=== PATIENT | female | born 1960 | race Caucasian/White ===

== ENCOUNTER → 2016-11-17 | Day surgery (SDC) | payer OTHER ==
--- NOTE | 2016-11-08 14:22 | TH ---
cc: MERVIN FRIEND [facility] [id number] DATE: DATE OF : 1960 PRINCIPAL DIAGNOSIS Newly diagnosed right breast cancer. HISTORY OF PRESENT ILLNESS The patient is a 56-year-old female noted to have a newly diagnosed right breast cancer. She has had a palpable mass in her right breast since July and bilateral diagnostic mammography on August 30 at [facility] confirmed a BI-RADS 5 spiculated mass in the upper inner right breast corresponding to the palpable abnormality. This was confirmed with a right breast ultrasound and bilateral microcalcifications were also noted. Bilateral stereotactic biopsy as well as ultrasound-guided right breast mass biopsy was performed on September 08. 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 Ki-67 was intermediate at 16%. The right breast microcalcifications were benign but the left microcalcifications demonstrated atypical ductal hyperplasia. She has opted for breast conservation as well as re-excision of the area of atypical hyperplasia in the left breast. PAST MEDICAL HISTORY 1. Chester's thyroiditis. 2. Labile blood pressure. PAST SURGICAL HISTORY 1. Tonsillectomy in 1964. 2. [place] tooth extraction in 1979. MEDICATIONS Alprazolam 0.5 mg p.r.n. ALLERGIES She has no drug allergies. FAMILY HISTORY Noncontributory. SOCIAL HISTORY She denied tobacco use. REPRODUCTIVE HISTORY G3, P0, A3. Menarche age 12. She continues to menstruate and does not take hormone replacement. REVIEW OF SYSTEMS A 12-point review of systems was otherwise noncontributory. PHYSICAL EXAMINATION VITAL SIGNS: She was 5 feet 8 inches and weighed 235 pounds with a BMI of 35.7. Blood pressure 172/89, temperature 98, heart rate 95, respirations 18. HEENT: Exam was unremarkable. NECK: Supple with no adenopathy or thyromegaly. CHEST: Clear throughout. CARDIAC: Normal S1 and S2 with no murmurs, rubs or gallops. BREASTS: Exam revealed that the left breast was larger than the right with normal nipples and no discharge. There was a palpable 2 cm superior medial quadrant mass in the right breast at 1 o'clock parasternal. There were healed biopsy scars in both breasts. There was no palpable mass in the left breast. ABDOMEN: The abdomen was soft and nontender throughout with no hepatosplenomegaly or masses. The remainder of her exam was unremarkable. IMPRESSION Ms. Esparza has clinical stage II right breast cancer, and atypical ductal hyperplasia of the left breast. MRI confirmed these findings. PLAN/RECOMMENDATIONS I have recommended a right breast lumpectomy as well as a left breast needle-localized lumpectomy and she will also require sentinel lymph node biopsy with a full scan and possible internal mammary lymph node biopsy. She understands the risks and benefits of the procedure and has agreed to proceed. MD TETE Casper/ANATOLIY /1:48 PM /2:05 PM
[~2016-11-17] MED LIST: BUPIVACAINE HCL PF 0.5% 30 ML VIAL ONE; ISOSULFAN BLUE 50 MG/5 ML VIAL SQ ONE; KETOROLAC TROMETHAMINE 30 MG/ML (IVP) VIAL ONE; LACTATED RINGER'S 1,000 ML BAG IV ONE; LACTATED RINGER'S 1000 ML INJ 1,000 ML ONE; MEPERIDINE HCL 25 MG/ML VIAL ONE; MIDAZOLAM HCL 2 MG/2 ML VIAL ONE; MORPHINE SULFATE 4 MG/ML INJ ONE; ONDANSETRON HCL 4 MG/2 ML VIAL IV PUSH ONE; PROPOFOL 200 MG/20 ML AMP IV ONE; SODIUM CHLORIDE 0.9% INJ 10 ML ONE; ceFAZolin 2 GM PREMIX 50 ML ONE; oxyCODONE/ACETAMINOPHEN 5 MG/325 MG TAB ONE
--- NOTE | 2016-11-17 13:56 | TN ---
cc: SABRINA FIREND DATE OF SURGERY: 11/17/2016 PRINCIPAL DIAGNOSIS Atypical ductal hyperplasia of the left breast and clinical stage II invasive ductal carcinoma of the right breast. PROCEDURE PERFORMED Left breast needle-localized lumpectomy and right breast lumpectomy and axillary sentinel lymph node biopsy. SURGEON Sabrina Friend MD. ANESTHESIA General via LMA device. INDICATION The patient is a 56-year-old female who had a 2 cm palpable upper medial right breast mass as well as bilateral microcalcifications by imaging. Ultrasound-guided biopsy of the mass was positive for carcinoma but the stereotactic right breast biopsy was benign. The left breast stereotactic biopsy demonstrated atypical ductal hyperplasia. She now presents for definitive surgery. FINDINGS AT SURGERY Left breast specimen mammogram did demonstrate an intact wire and the clip was within the excised tissue. Four sentinel lymph nodes were identified. #1 was 1+ blue and had a count of 4232. [place] nodes two and three, were not blue and had a count of 836 and 139 respectively. [place] lymph node #4 was not blue and had a count of six but was grossly enlarged. Background count was two. PROCEDURE PERFORMED After informed consent was obtained and site verification was performed, the patient was brought to the radiology suite where she underwent bella tumor radionuclide injection as well as needle localization of her left breast calcifications. She was then brought to the major operating room where she was given a single dose of IV Ancef and sequential compression hose were placed. She underwent general anesthesia via LMA device and both the left and right breast as well as the right arm were then prepped and draped in sterile fashion. 2 cc of half-strength Lymphazurin were injected in the subareolar right breast and a 5-minute massage was performed. A periareolar skin incision was created at 2 o'clock in the left breast after anesthetizing with 0.5% Marcaine plain. Both sharp and electrocautery dissection were then performed until the wire entry point through the skin was identified and secured with a hemostat. The wire was then cut off at the skin with pin cutters. A 2-0 silk transfixion suture was placed at the wire entry point into the breast tissue and both electrocautery and sharp dissection were then performed circumferentially around the wire. The specimen was oriented with two sutures lateral, one long suture anteriorly, and one short suture superiorly. The specimen was sent to mammography with the findings as noted and was then sent for permanent pathologic evaluation. Hemostasis was easily obtained with electrocautery and the wound was closed using interrupted 3-0 Vicryl subcutaneous sutures and a 4-0 Monocryl subcuticular suture. Steri-Strips and a sterile dressing were applied. Attention was then turned to the right breast where an incision was anesthetized at the inferior aspect of the right axillary hairline using 0.5% Marcaine plain. Both sharp and electrocautery dissection were then performed until the clavipectoral fascia was divided and the level I axilla was entered. There was an enlarged blue mid level I lymph node which was immediately identified and circumferentially dissected free from surrounding structures using the harmonic scalpel. This node had the count of 4232. Some other smaller mid level I lymph nodes were palpated and these were circumferentially dissected free from surrounding structures with the counts as noted. A fourth a larger lymph node near the axillary vein was also identified and carefully dissected free from surrounding structures using the harmonic scalpel. The axillary vein, thoracodorsal, and long thoracic neurovascular bundles were identified and remained intact throughout the dissection as did the intercostal brachial nerve. The lymph nodes were sent for permanent pathologic evaluation and hemostasis was easily obtained with the harmonic scalpel. The axillary wound was closed using interrupted 3-0 Vicryl subcutaneous sutures and a 4-0 Monocryl subcuticular suture. Attention was then turned to the right breast where a palpable mass was identified at 2 o'clock 5 cm from the nipple. A periareolar skin incision was created between 1:00 and 2:00 o'clock and both sharp and electrocautery dissection were then performed circumferentially around the palpable mass until it had been mobilized into the wound. The specimen was oriented with two sutures anteriorly, one long suture laterally, and one short suture superiorly. Inspection of the specimen did demonstrate that the lateral margin appeared close and this was reexcised with a stitch on the new lateral margin. Both the lateral margin and lumpectomy specimen were sent separate and permanent for histopathology. Hemostasis was easily obtained with electrocautery and the wound was closed using interrupted 3-0 Vicryl subcutaneous sutures and a 4-0 Monocryl subcuticular suture. Steri-Strips and sterile dressings were then applied. The patient tolerated the procedure well with an estimated blood loss of 250 cc. She was extubated in the operating room and brought to recovery room in good condition and all sponge and needle counts were correct at the conclusion of the case. MD TETE Casper/adolfo /1:31 PM /1:43 PM OSITO
== END | disposition home or self-care (01) ==
LOC: ESDC 06:31
PROVIDERS: ATTEND Surgery
DX: C50.911 Malignant neoplasm of unspecified site of right female breast (principal); N60.92 Unspecified benign mammary dysplasia of left breast
CPT/HCPCS: 00400; 01610; 19125; 19301; 38525; 88307; J0690; J1885; J2175; J2250; J2270; J2405; J3010; J7120; Q9968; 88305

== ENCOUNTER → 2016-12-13 | Day surgery (SDC) | payer OTHER ==
[~2016-12-13] MED LIST changes: +APREPITANT 40 MG CAP ONE; +BUPIVACAINE HCL PF 0.5% 10 ML VIAL ONE; -BUPIVACAINE HCL PF 0.5% 30 ML VIAL ONE; +KETOROLAC TROMETHAMINE 30 MG/ML (IVP) VIAL IV PUSH ONE; -KETOROLAC TROMETHAMINE 30 MG/ML (IVP) VIAL ONE; -LACTATED RINGER'S 1,000 ML BAG IV ONE; -MORPHINE SULFATE 4 MG/ML INJ ONE
--- NOTE | 2016-12-13 13:20 | TN ---
cc: SABRINA FRIEND DATE OF SURGERY: 12/13/2016 PRINCIPAL DIAGNOSIS Bilateral breast cancer. PROCEDURE PERFORMED Right lumpectomy inferior margin re-excision and left axillary sentinel lymph node biopsy. SURGEON Sabrina Friend MD ANESTHESIA General via LMA device. INDICATION The patient is a 56-year-old female with a recently diagnosed right breast invasive cancer and atypical ductal hyperplasia of the left breast. She underwent bilateral lumpectomies and a right axillary sentinel lymph node biopsy in early November and had a positive inferior margin for DCIS. In addition, the lumpectomy specimen on the left side demonstrated a T1A focus of invasive ductal carcinoma and she now requires cynthia staging. FINDINGS At the time of the procedure, the right breast lumpectomy cavity was easily reidentified with no gross evidence of residual tumor. Six sentinel lymph nodes were identified. #1 had a count of 6325 and was not blue. #2 had a count of 2893 and #3 had a count of 1506 and these were also not blue. Lymph node #4 had a count of 579, lymph node #5 had a count of 266, and lymph node #6 had a count of 217. Touch prep was not performed. PROCEDURE PERFORMED After informed consent was obtained and site verification was performed, the patient was brought to the radiology suite where she underwent left breast peritumoral radionuclide injection. She was then brought to the major operating room where she underwent general anesthesia via LMA device. The right breast and left upper chest and arm were prepped and draped in sterile fashion. She was given a single dose of IV Ancef and sequential compression hose were placed. The upper inner right breast periareolar incision was anesthetized and incised sharply. The lumpectomy cavity was immediately identified and the seroma was evacuated. The inferior margin was sharply demarcated and we excised with a stitch on the new margin and this was sent as a permanent specimen. Hemostasis was easily obtained with electrocautery and the wound was closed using interrupted 3-0 Vicryl subcutaneous sutures and a 4-0 Monocryl subcuticular suture. Attention was then turned to the left axilla where an incision was anesthetized at the inferior aspect of the left axillary hairline. Both sharp and electrocautery dissection were performed until the clavipectoral fascia was divided and the level I axilla was entered. Multiple mid level I sentinel lymph nodes were identified and each was circumferentially dissected free from surrounding structures using the harmonic scalpel with the counts as noted. There was minimal bleeding and the axillary vein as well as long thoracic and thoracodorsal neurovascular bundles were identified and preserved throughout the dissection. The wound was then closed using interrupted 3-0 Vicryl subcutaneous sutures and a 4-0 Monocryl subcuticular suture. All sponge and needle counts were correct and Steri-Strips and sterile dressings were applied to both wounds. The patient tolerated the procedure well with minimal blood loss and she was extubated in the operating room and brought to the recovery room in good condition. MD TETE Casper/SWATI /12:49 PM /1:00 PM
== END | disposition home or self-care (01) ==
LOC: ESDC 07:17
PROVIDERS: ATTEND Surgery
DX: C50.911 Malignant neoplasm of unspecified site of right female breast (principal); N60.92 Unspecified benign mammary dysplasia of left breast; L76.34 Postprocedural seroma of skin and subcutaneous tissue following other procedure
CPT/HCPCS: 00400; 01610; 19301; 38525; 38792; 88307; 88309; J0690; J1885; J2175; J2250; J2405; J3010; J7120; J8501; Q9968